=== PATIENT | female | born 1950 | race Caucasian/White ===

== ENCOUNTER → 2018-05-03 | Outpatient (CLI) | payer MEDICARE ==
--- NOTE | 2018-05-03 12:15 | BD ---
EXAMINATION TYPE: Axial Bone Density DATE OF EXAM: 05/03/2018 COMPARISON: 2014 CLINICAL HISTORY: Osteoporosis screening. Postmenopausal female. Height: 5'4 Weight: 109 FRAX RISK QUESTIONS: Secondary Osteoporosis: 3. Menopause before 45: y RISK FACTORS HISTORY OF: Postmenopausal woman: y MEDICATIONS: Additional Medications: Additional History: EXAM MEASUREMENTS: Bone mineral densitometry was performed using the RegainGo System. Bone mineral density as measured about the Lumbar spine is: ----- L1-L4(G/cm2): 0.952 T Score Values are as follows: ----- L2: -2.6 ----- L3: -1.9 ----- L4: -1.1 ----- L1-L4: -1.9 Bone mineral density has: Decreased -0.4% since study of: 12/14/2014 Bone mineral density about the R hip (g/cm2): 0.771 Bone mineral density about the L hip (g/cm2): 0.700 T Score values are as follows: -----R Neck: -1.9 -----L Neck: -2.4 -----R Total: -2.1 -----L Total: -2.4 Bone mineral density has: Decreased -7.0% since study of: 12/14/2014 IMPRESSION: Osteopenia (T Score between -2.5 and -1). Values approach osteoporosis with regards to the left femur . There is slightly increased risk of fracture and the patient may be considered for treatment. Re-Screen 2-5 years. NOTE: T-SCORE=SD OF THE YOUNG ADULT MEAN.
--- NOTE | 2018-05-04 10:15 | MM ---
Reason for exam: screening (asymptomatic). Last mammogram was performed 2 years ago. History: Patient is postmenopausal. Family history of premenopausal breast cancer in maternal cousin at age 34 and breast cancer in maternal grandmother. 2 benign excisional biopsies of the left breast. Benign excisional biopsy of the right breast. Took estrogen for 10 years beginning at age 42. Physical Findings: A clinical breast exam by your physician is recommended on an annual basis and results should be correlated with mammographic findings. MG 3D Screening Mammo W/Cad Bilateral CC and MLO view(s) were taken. Prior study comparison: May 15, 2016, bilateral MG screening mammo w CAD. May 25, 2014, left breast MG work up mamm w CAD LT. There are scattered fibroglandular densities. No suspicious abnormality. No significant changes when compared with prior studies. ASSESSMENT: Negative, BI-RAD 1 RECOMMENDATION: Routine screening mammogram of both breasts in 1 year.
== END | disposition home or self-care (01) ==
LOC: RADMAMWWP 11:31
PROVIDERS: ATTEND Family Medicine
DX: Z12.31 Encounter for screening mammogram for malignant neoplasm of breast (principal); Z13.820 Encounter for screening for osteoporosis; M85.80 Other specified disorders of bone density and structure, unspecified site
CPT/HCPCS: 77063; 77067; 77080

== ENCOUNTER → 2019-04-12 | Outpatient (CLI) | payer MEDICARE ==
--- NOTE | 2019-04-12 09:40 | US ---
EXAMINATION TYPE: US abdomen complete DATE OF EXAM: 04/12/2019 COMPARISON: MR abdomen 2015 CLINICAL HISTORY: R10.11 rt upper quadrant pain. EXAM MEASUREMENTS: Liver Length: 10.2 cm Gallbladder Wall: 0.2 cm CBD: 0.3 cm Spleen: 10.4 cm Right Kidney: 11.8 x 3.3 x 3.7 cm Left Kidney: 10.0 x 5.2 x 4.3 cm Pancreas: visualized portions wnl Liver: cyst right lobe measures 1.3 x 0.7 x 1.1 cm Gallbladder: No stones seen Evidence for sonographic Abrams's sign: No CBD: wnl Spleen: wnl Right Kidney: No hydronephrosis or masses seen Left Kidney: No hydronephrosis or masses seen Upper IVC: wnl Abd Aorta: wnl The visualized liver is homogenous. Technologist haynes 0.1 cm oval anechoic lesion felt to reflect th in-walled septated cyst right hepatic lobe corresponding to MRI axial image 24. The intrahepatic port ion of the IVC and visualized abdominal aorta and bifurcation are within normal limits. There is no evidence of shadowing mobile cholelithiasis. Common bile duct is unremarkable. The visualized porti ons of the pancreas are homogenous. The spleen is unremarkable. Kidneys are symmetric and free of h ydronephrosis. No renal lesions are seen. IMPRESSION: No acute findings are evident.
== END ==
LOC: RADUSWWP 08:41
PROVIDERS: ATTEND Family Medicine
DX: R10.11 Right upper quadrant pain (principal)
CPT/HCPCS: 76700

== ENCOUNTER → 2019-05-27 | Outpatient (CLI) | payer MEDICARE ==
--- NOTE | 2019-05-29 09:41 | MM ---
Reason for exam: screening (asymptomatic). Last mammogram was performed 1 year and 1 month ago. History: Patient is postmenopausal. Family history of premenopausal breast cancer in maternal cousin at age 34 and breast cancer in maternal grandmother. 2 benign excisional biopsies of the left breast. Benign excisional biopsy of the right breast. Took estrogen for 10 years beginning at age 42. Physical Findings: A clinical breast exam by your physician is recommended on an annual basis and results should be correlated with mammographic findings. MG 3D Screening Mammo W/Cad Bilateral CC and MLO view(s) were taken. Prior study comparison: May 03, 2018, bilateral MG 3d screening mammo w/cad. May 15, 2016, bilateral MG screening mammo w CAD. There are scattered fibroglandular densities. No suspicious abnormality. No significant changes when compared with prior studies. ASSESSMENT: Negative, BI-RAD 1 RECOMMENDATION: Routine screening mammogram of both breasts in 1 year.
== END | disposition home or self-care (01) ==
LOC: RADMAMWWP 10:50
PROVIDERS: ATTEND Family Medicine
DX: Z12.31 Encounter for screening mammogram for malignant neoplasm of breast (principal)
CPT/HCPCS: 77063; 77067

== ENCOUNTER → 2020-07-03 | Outpatient (CLI) | payer MEDICARE ==
--- NOTE | 2020-07-03 22:07 | CT ---
EXAMINATION TYPE: CT abdomen pelvis w con DATE OF EXAM: 07/03/2020 COMPARISON: Ultrasound abdomen 04/12/2019 INDICATION: Right upper quadrant pain DLP: 346.50 mGycm, Automated exposure control for dose reduction was used. CONTRAST: 100 ml mL of Isovue 370. Study performed with Oral Contrast TECHNIQUE: Axial images were obtained from above the diaphragm to the pubic rami in the axial plane a t 5 mm thick sections. Reconstructed images are reviewed on the computer in the coronal plane. FINDINGS: Limited CT sections are obtained the lung bases. There is a small area of pneumonitis in the periphe ry of the right lung field. Series 5 image 2. There is a 0.5 cm nodule in the periphery of the right lower lobe. Series [address] ABDOMEN: Liver: e there is a 1.1 cm cyst on the anterior right lobe liver measuring 26 Hounsfield units. Spleen: Normal Pancreas: Normal Adrenal glands: The adrenal glands are normal. Gallbladder: Normal Kidneys: No masses are evident. No hydronephrosis is present. No cysts are present. Delayed images were obtained through the kidneys, which remain unremarkable. Aorta: Normal Inferior vena cava: Normal. CT PELVIS: Loops of bowel within the abdomen and pelvis are normal. Diverticular changes are within the sigmoid colon. There are loops of bowel which are incompletely distended or lack oral contrast limiting th eir evaluation. Appendix: Normal as visualized. Urinary bladder: Normal. Genitourinary structures: Uterus is not identified. Adnexal regions are clear. No free fluid is withi n the pelvis. Osseous structures: No suspicious lytic or sclerotic lesions. Scoliosis is within the lumbar spine. IMPRESSIONS: 1. Mild diverticulosis without acute diverticulitis. 2. Complex right hepatic lobe cyst.
== END | disposition home or self-care (01) ==
LOC: RADCTMAIN 07:33
PROVIDERS: ATTEND Internal Medicine Gastroenterology
DX: K57.30 Diverticulosis of large intestine without perforation or abscess without bleeding (principal); K76.89 Other specified diseases of liver; Z91.048 Other nonmedicinal substance allergy status; R10.11 Right upper quadrant pain
CPT/HCPCS: 82565; 84520; 74177; 36415; Q9967

== ENCOUNTER 2020-07-24 09:55 | Day surgery (SDC) | payer MEDICARE ==
[2020-07-22 09:20] VITALS: BMI 18.3
[~2020-07-24 09:55] MED LIST: LACTATED RINGERS 1,000 ML IV SCH; LIDOCAINE 1% (10MG/ML) FOR IV START INTRADERMA PRN
[2020-07-24 10:53] VITALS: RESP 16; TEMP 97.5
[2020-07-24] MEDS ORDERED: LACTATED RINGERS 1,000 ML IV ONE (10:54)
[2020-07-24] MEDS ORDERED: PROPOFOL 10 MG/ML 20 ML VIAL IV ONE (11:29)
[2020-07-24] MEDS ORDERED: LIDOCAINE 1% INJ 10MG/ML (20 ML MDV) ONE (11:29)
--- NOTE | 2020-07-24 12:00 | P.PCN ---
Date of Procedure: 07/24/20 Procedure(s) Performed: Brief history: Patient is a pleasant 69 scheduled for an elective upper endoscopy as well as colonoscopy as a part of evaluation of right upper quadrant abdominal pain and progressive weight loss for the last few months duration. She also has family history of colon cancer in her aunt and father in their 60's. Procedure performed: With biopsy Esophagogastroduodenoscopy Colonoscopy Preoperative diagnosis: Right upper quadrant abdominal pain and progressive weight loss Screening for colon cancer/family history of colon cancer Anesthesia: MAC Procedure: After informed consent was obtained from the patient was brought into the endoscopy unit and IV sedation was administered by anesthesia under continuous monitoring. Initially upper endoscopy was done. The Olympus GF 160 video endoscope was inserted inserted into the mouth and esophagus intubated without any difficulty and was gradually advanced into the stomach and duodenum and carefully examined. The bulb and second part of the duodenum appeared normal. The scope was then withdrawn into the stomach adequately insufflated with air and upon careful examination the antrum had mild mottling of the mucosa and biopsies were done from this area. The body, cardia and fundus appeared normal. The scope was then withdrawn into the esophagus. The GE junction was located at 38 cm to the incisors. Small sliding type hiatal hernia noted. The GE junction appeared regular with no erythema erosions or ulcerations. Rest of the esophagus appeared normal. Patient tolerated the procedure well. At this time the patient continued to remain sedation. Initial digital rectal examination was normal. Olympus CF 160 video colonoscope was then inserted into the rectum and gradually advanced to the cecum with severe difficulty secondary to extremely tortuous and angulated colon. Careful examination was performed as the scope was gradually being withdrawn. The prep was fair. The cecum, ascending colon, transverse colon, descending colon, sigmoid colon and rectum appeared normal. Retroflexion was performed in the rectum and no lesions were noted. Patient tolerated the procedure well. Impression: 1. Upper endoscopy is revealed mild antral gastritis and small sliding Hiatal hernia 2. Colonoscopy was within normal limits with no evidence of colitis or colorectal neoplasia Recommendations: Findings of this examination were discussed with the patient as well as her family. She was advised to follow with the biopsy results. She was advised to have a repeat screening colonoscopy every 5 years because of the strong family history of colon cancer.
[2020-07-24 12:27] VITALS: BP 129/64; PULSE 64
== END 2020-07-24 12:53 | disposition home or self-care (01) ==
LOC: ORWHC2ENDO 09:55
PROVIDERS: ATTEND Internal Medicine Gastroenterology
DX: R63.4 Abnormal weight loss (principal); Q43.8 Other specified congenital malformations of intestine; K29.50 Unspecified chronic gastritis without bleeding; K44.9 Diaphragmatic hernia without obstruction or gangrene; K08.409 Partial loss of teeth, unspecified cause, unspecified class; E78.5 Hyperlipidemia, unspecified; Z88.5 Allergy status to narcotic agent; Z87.898 Personal history of other specified conditions; Z68.1 Body mass index [BMI] 19.9 or less, adult; Z80.0 Family history of malignant neoplasm of digestive organs
CPT/HCPCS: 88305; 45378; 43239; J2001; J2704

== ENCOUNTER 2023-05-02 19:46 | Emergency (ER) | payer MEDICARE ==
--- NOTE | 2023-05-02 20:09 | ED ---
General Adult HPI - General Stated complaint: Rt knee poss blood clot Time Seen by Provider: 05/02/23 20:07 Source: patient, RN notes reviewed Mode of arrival: ambulatory Limitations: no limitations - History of Present Illness Initial comments: 72-year-old female presents emergency Department which he went right leg pain, swelling. Patient is concerned about possible blood clot. Patient states she felt like a hamstring popped 2 weeks ago when she had COVID-19. Stitches placed on steroids by her PCP after being evaluated. Leg pain. She states now noticed some swelling diffusely of her right leg. She denies any chest pain or shortness of breath currently. - Related Data Home Medications Medication Instructions Recorded Confirmed Multivitamins, Thera [Multivitamin 1 tab PO DAILY 07/22/20 07/24/20 (formulary)] Allergies Allergy/AdvReac Type Severity Reaction Status Date / Time meperidine [From Demerol] Allergy Unknown Verified 05/02/23 20:10 Review of Systems ROS Statement: Those systems with pertinent positive or pertinent negative responses have been documented in the HPI. ROS Other: All systems not noted in ROS Statement are negative. Past Medical History Past Medical History: Hyperlipidemia Additional Past Medical History / Comment(s): "Abd pain, trouble digesting food, feel like food is stuck in my stomach." "Tortuous colon". History of Any Multi-Drug Resistant Organisms: None Reported Past Surgical History: Section Additional Past Surgical History / Comment(s): Colonoscopy, ovaries and tubes removed, Section X2, "told I have a lot of scar tissue and adhesions". Past Anesthesia/Blood Transfusion Reactions: Family History of Problems w/ Anesthesia, Motion Sickness Additional Past Anesthesia/Blood Transfusion Reaction / Comment(s): "Mom and sister slow to wake up and both had Demerol and heart stopped." Past Psychological History: No Psychological Hx Reported Smoking Status: Never smoker Past Alcohol Use History: Occasional Past Drug Use History: None Reported - Past Family History Father Family Medical History: Cancer Additional Family Medical History / Comment(s): Colon Cancer. General Exam Limitations: no limitations General appearance: alert, in no apparent distress Head exam: Present: atraumatic, normocephalic, normal inspection Respiratory exam: Present: normal lung sounds bilaterally. Absent: respiratory distress, wheezes, rales, rhonchi, stridor Cardiovascular Exam: Present: regular rate, normal rhythm, normal heart sounds. Absent: systolic murmur, diastolic murmur, rubs, gallop, clicks Extremities exam: Present: other (Right leg there is mild swelling, neurovascular intact) Course Vital Signs 05/02/23 20:11 Temperature 99.4 F Pulse Rate 83 Respiratory 18 Rate Blood Pressure 147/78 O2 Sat by Pulse 98 Oximetry Medical Decision Making - Medical Decision Making Was pt. sent in by a medical professional or institution (EMBER Arredondo, PEDIATRIC ALLERGIST, urgent care, hospital, or [facility]...) When possible be specific @ -No Did you speak to anyone other than the patient for history (EMS, parent, family, police, friend...)? What history was obtained from this source @ -No Did you review nursing and triage notes (agree or disagree)? Why? @ -I reviewed and agree with nursing and triage notes Were old charts reviewed (outside hosp., previous admission, EMS record, old EKG, old radiological studies, urgent care reports/EKG's, [facility] records)? Report findings @ -No old charts were reviewed Differential Diagnosis (chest pain, altered mental status, abdominal pain women, abdominal pain men, vaginal bleeding, weakness, fever, dyspnea, syncope, headache, dizziness, GI bleed, back pain, seizure, CVA, palpatations, mental health, musculoskeletal)? @ -DVT, superficial thrombophlebitis, cellulitis, Medley's cyst EKG interpreted by me (3pts min.). @ -None X-rays interpreted by me (1pt min.). @ -None done CT interpreted by me (1pt min.). @ -None done U/S interpreted by me (1pt. min.). @ -Ultrasound right venous Doppler negative for DVT patient has Mdeley's cyst noted What testing was considered but not performed or refused? (CT, X-rays, U/S, labs)? Why? @ -None What meds were considered but not given or refused? Why? @ -None Did you discuss the management of the patient with other professionals (professionals i.e. EMBER Arredondo, PEDIATRIC ALLERGIST, lab, RT, psych nurse, social work msw, precision lens polisher, teacher, nuclear medicine officer, egg caser)? Give summary @ -No Was smoking cessation discussed for >3mins.? @ -No Was critical care preformed (if so, how long)? @ -No Were there social determinants of health that impacted care today? How? (Homelessness, low income, unemployed, alcoholism, drug addiction, transportation, low edu. Level, literacy, decrease access to med. care, fdc, rehab)? @ -No Was there de-escalation of care discussed even if they declined (Discuss DNR or withdrawal of care, Hospice)? DNR status @ -No What co-morbidities impacted this encounter? (DM, HTN, Smoking, COPD, CAD, Cancer, CVA, ARF, Chemo, Hep., AIDS, mental health diagnosis, sleep apnea, morbid obesity)? @ -None Was patient admitted / discharged? Hospital course, mention meds given and r oute, prescriptions, significant lab abnormalities, going to OR and other pertinent info. @ -Discharge patient ultrasound was negative for acute DVT. Patient has a process causing her symptoms. She will use compression, ice and anti- inflammatories return parameters were discussed. Undiagnosed new problem with uncertain prognosis? @ -No Drug Therapy requiring intensive monitoring for toxicity (Heparin, Nitro, Insulin, Cardizem)? @ -No Were any procedures done? @ -No Diagnosis/symptom? @ -Right knee Medley's cyst Acute, or Chronic, or Acute on Chronic? @ -Acute Uncomplicated (without systemic symptoms) or Complicated (systemic symptoms)? @ -Uncomplicated Side effects of treatment? @ -No Exacerbation, Progression, or Severe Exacerbation? @ -No Poses a threat to life or bodily function? How? (Chest pain, [place], [place], pneumonia, PE, COPD, DKA, ARF, appy, cholecystitis, CVA, Diverticulitis, Homicidal, Suicidal, threat to staff... and all critical care pts) @ -No Disposition Clinical Impression: Synovial cyst of popliteal space [Medley], right knee Disposition: HOME SELF-CARE Condition: Stable Instructions (If sedation given, give patient instructions): Medley Cyst (ED) Additional Instructions: Please return to the Emergency Department if symptoms worsen or any other con cerns. Is patient prescribed a controlled substance at d/c from ED?: No Referrals: Cindy Mccallum DO [Primary Care Provider] - 1-2 days Time of Disposition: 21:50
--- NOTE | 2023-05-02 21:51 | US ---
EXAMINATION TYPE: US venous doppler duplex LE RT DATE OF EXAM: 05/02/2023 8:37 PM COMPARISON: NONE CLINICAL INDICATION: Female, 72 years old with history of pain; right knee pain, no h/o dvt SIDE PERFORMED: Right TECHNIQUE: The lower extremity deep venous system is examined utilizing real time linear array sonog christine with graded compression, doppler sonography and color-flow sonography. VESSELS IMAGED: Common Femoral Vein Deep Femoral Vein Greater Saphenous Vein * Femoral Vein Popliteal Vein Small Saphenous Vein * Proximal Calf Veins (* superficial vessels) Venous structures fill with normal color flow signal, normal waveforms and compressibility. No intral uminal filling defects seen. Right Leg: Negative for DVT medial fluid collection superficial to vessels in the right popliteal fossa, without internal Doppl er flow seen = 3.3 x 2.3 x 0.4cm, probable Medley's cyst IMPRESSION: 1. No evidence of DVT in the right lower extremity. 2. Probable Medley's cyst in the popliteal fossa.
[2023-05-02 22:17] VITALS: BP 130/74; PULSE 65; RESP 16; TEMP 98
== END 2023-05-02 22:02 | disposition home or self-care (01) ==
LOC: EC 19:46
DX: M71.21 Synovial cyst of popliteal space [Baker], right knee (principal); Z88.5 Allergy status to narcotic agent
CPT/HCPCS: 99283

== ENCOUNTER → 2024-03-24 | Outpatient (CLI) | payer MEDICARE ==
--- NOTE | 2024-03-31 10:51 | MM ---
Reason for Exam: Screening (asymptomatic). Last mammogram was performed 4 year(s) and 10 month(s) ago. Patient History: Menarche at age 14. First Full-Term at age 24. Left ovary removed at age 40. Right ovary removed at age 40. Hysterectomy at age 40. Postmenopausal. Estrogen for 10 years from age 42 until age 52. Benign Excisional Biopsy on the right side. Benign Excisional Biopsy on the left side. Benign Excisional Biopsy on the left side. Maternal grandmother had breast cancer. Maternal cousin had breast cancer, age 34. Risk Values: Susana 5 year model risk: 2.3%. NCI Lifetime model risk: 6.4%. Prior Study Comparison: 05/15/2016 Bilateral Screening Mammogram, [facility]. 05/03/2018 Bilateral Screening Mammogram, [facility]. 05/27/2019 Bilateral Screening Mammogram, [facility]. Tissue Density: There are scattered areas of fibroglandular density. Findings: Analyzed By CAD. Right breast: There is no suspicious group of microcalcifications or new suspicious mass. Left breast: There is no suspicious group of microcalcifications or new suspicious mass. Overall Assessment: Negative, BI-RAD 1 Management: Screening Mammogram of both breasts in [address] [facility] will attempt to contact patient to return for supplemental views and ultrasound if indicated. Patient should continue monthly self-breast exams. A clinical breast exam by your physician is recommended on an annual basis. This exam should not preclude additional follow-up of suspicious palpable abnormalities. Note on Susana scores and lifetime risk: 1. A Susana score greater than 3% is considered moderate risk. If this is the case, consider specialist referral to assess eligibility for a risk reducing agent. 2. If overall lifetime risk for the development of breast cancer is 20% or higher, the patient may qualify for future screening with alternating mammogram and breast MRI. [facility], , 03/31/2024 10:47 AM. Electronically signed and approved by: Dakota Escudero DO
== END | disposition home or self-care (01) ==
LOC: RADMAMWWP 14:27
PROVIDERS: ATTEND Family Medicine
DX: Z12.31 Encounter for screening mammogram for malignant neoplasm of breast (principal); R92.323 Mammographic fibroglandular density, bilateral breasts; Z78.0 Asymptomatic menopausal state; Z80.3 Family history of malignant neoplasm of breast; Z90.722 Acquired absence of ovaries, bilateral
CPT/HCPCS: 77063; 77067

== ENCOUNTER → 2024-03-29 | Outpatient (CLI) | payer MEDICARE ==
--- NOTE | 2024-04-02 22:32 | BD ---
EXAMINATION TYPE: Axial Bone Density DATE OF EXAM: 03/29/2024 CLINICAL HISTORY: 73 years old Female. ICD-10 CODE: Z78.0 ASYMPTOMATIC MENOPAUSAL STATE , Additional History: Height: 63.75 Weight: 105 FRAX RISK QUESTIONS: Family History (Parent hip fracture): no History of Fracture in Adulthood: no Secondary Osteoporosis: yes 3. Menopause before 45: yes RISK FACTORS HISTORY OF: Surgery to Spine/Hip(right/left)/Wrist (right/left): no MEDICATIONS: Thyroid Medications: no Osteoporosis Medications: no EXAM MEASUREMENTS: Bone mineral densitometry was performed using the [employer] System. Bone mineral density as measured about the Lumbar spine is: ----- L1-L4(G/cm2): 0.840 T Score Values are as follows: ----- L1: -3.0 ----- L2: -3.7 ----- L3: -3.2 ----- L4: -1.7 ----- L1-L4: -2.8 Z Score Values are as follows: ----- L1: -0.7 ----- L2: -1.5 ----- L3: -0.9 ----- L4: 0.5 ----- L1-L4: -0.6 Bone mineral density has: Decreased -11.8% since study of: 05/03/2018 Bone mineral density about the R hip (g/cm2): 0.692 Bone mineral density about the L hip (g/cm2): 0.620 T Score values are as follows: -----R Neck: -2.3 -----L Neck: -2.8 -----R Total: -2.5 -----L Total: -3.1 Z Score values are as follows: -----R Neck: -0.2 -----L Neck: -0.7 -----R Total: -0.5 -----L Total: -1.1 Bone mineral density has: Decreased -9.0% since study of: 05/03/2018 FRAX%s: The graph provided illustrates a 14.8% chance for a major osteoporotic fx and a 5.0% chance f or the hips probability for fx in 10 years time. IMPRESSION: Osteoporosis (T Score less than -2.5). There is increased fracture risk and therapy is usually indicated based on age. Re-Screen 1-2 years. NOTE: T-SCORE=SD OF THE YOUNG ADULT MEAN. [facility], , 04/02/2024 10:30 PM
== END | disposition home or self-care (01) ==
LOC: RADBDWWP 14:00
PROVIDERS: ATTEND Family Medicine
DX: M81.0 Age-related osteoporosis without current pathological fracture (principal); Z78.0 Asymptomatic menopausal state
CPT/HCPCS: 77080